=== PATIENT | male | born 1955 | race Caucasian/White ===

== ENCOUNTER 2020-01-20 14:38 | Inpatient (IN) | payer OTHER ==
[~2020-01-20] VITALS: Ht 170.2 cm; Wt 78.7 kg
[2020-01-20] MEDS ORDERED: AZITHROMYCIN 500MG/ 250ML 250 ML IV ONE (15:00)
[2020-01-20] MEDS ORDERED: methylPREDNISolone SOD SUCC 125 MG/2 ML VL IV ONE (15:00)
[2020-01-20 16:00] LABS: Basophils # (auto) 0 10 ^3/uL (0-0.2); Basophils % (auto) 0.1 % (0.0-2.0); Eosinophils # (auto) 0 10 ^3/uL (0-0.8); Eosinophils % (auto) 0.6 % (0.0-7.0); Lymphocytes # (auto) 1.5 10 ^3/uL (0.4-5.4); Lymphocytes % (auto) 18.5 % (10.0-50.0); Mean Corpuscular Hemoglobin 31.5 pg (28.0-32.0); Mean Corpuscular Hgb Conc. 35.1 g/dL (32.0-36.0); Mean Corpuscular Volume 89.7 fL (80.0-100.0); Monocytes # (auto) 0.7 10 ^3/uL (0-1.3); Monocytes % (auto) 8.2 % (0.0-12.0); Neutrophils % (auto) 72.6 % (37.0-80.0); Platelet Count (auto) 434 10^3/uL (140-450); Red Blood Cells 4.13 10^6/uL (4.5-5.90); Red Cell Distribution Width 12.9 % (11.8-14.3); White Blood Cell 8.3 10^3/uL (4.4-10.8)
[2020-01-20 16:21] LABS: Albumin 2.5 g/dL (3.4-5.0); Anion Gap 6 (5-15); Blood Urea Nitrogen 10 mg/dL (7-18); Calcium 8.6 mg/dL (8.5-10.1); Carbon Dioxide 27 mmol/L (21-32); Chloride 99 mmol/L (98-107); Glucose 94 mg/dL (74-106); Potassium 3.2 mmol/L (3.5-5.1); Sodium 132 mmol/L (136-145)
[2020-01-20 16:27] LABS: Alanine Aminotransferase 26 U/L (16-61); Alkaline Phosphatase 70 U/L (45-117); Aspartate Aminotransferase 26 U/L (15-37); BUN/Creatinine Ratio 14.5; Bilirubin, Total 0.6 mg/dL (0.2-1.0); GFR African American 148 mL/min; GFR Non-African American 122 mL/min; Total Protein 7.8 g/dL (6.4-8.2)
[2020-01-20 17:05] LABS: CRP High Sensitivity > 19.0 mg/dL (< 0.3)
[2020-01-20] MEDS: ASCORBIC ACID 500 MG TAB PO SCH (22:00)
[2020-01-20] MEDS: methylPREDNISolone SOD SUCC 125 MG/2 ML VL IV SCH (22:00)
[2020-01-21 06:14] VITALS: BP 131/94
[2020-01-21 10:39] VITALS: BP 150/102
[2020-01-21] MEDS: methylPREDNISolone SOD SUCC 125 MG/2 ML VL IV SCH ×2 (10:44→21:42)
[2020-01-21] MEDS: ZINC SULFATE 220mg CAP or TAB PO SCH (10:45)
[2020-01-21] MEDS: ASCORBIC ACID 500 MG TAB PO SCH ×2 (10:45→21:43)
[2020-01-21] MEDS: CHOLECALCIFEROL (VITD3) 2,000 UNIT CAP PO SCH (10:46)
[2020-01-21] MEDS: AZITHROMYCIN 250 MG TAB PO SCH (10:47)
[2020-01-21] MEDS: cefTRIAXone 1GM/50ML D5W 50 ML IV SCH (12:00)
[2020-01-21 22:00] VITALS: BP 166/106
[2020-01-21] MEDS ORDERED: ALBUTEROL SULF HFA 90MCG INH 200DOSE IN SCH (22:00)
[2020-01-22 04:48] VITALS: BP 158/108
--- NOTE | 2020-01-22 07:26 | NUR ---
closing note pt is on 3L nc. no c/o pain or discomfort. no respiratory distress noted. endorsed care to SARAH Carbajal.
--- NOTE | 2020-01-22 07:30 | NUR ---
Opening Shift Note Assumed care of patient, awake and alert. No signs of distress or pain noted. Patient on 3 L Nasal Cannula. Respirations even and unlabored. Instructed patient on the use of the call light PRN. Call light within reach. Safety measures in place including bed locked and in lowest position, and two side rails up. Will continue to monitor for any changes.
[2020-01-22 09:15] VITALS: BP 166/108
[2020-01-22] MEDS: AZITHROMYCIN 250 MG TAB PO SCH (10:54)
[2020-01-22] MEDS: METOPROLOL SUCCINATE XL 50 MG TAB PO SCH (10:55)
[2020-01-22] MEDS: ZINC SULFATE 220mg CAP or TAB PO SCH (10:55)
[2020-01-22] MEDS: ASCORBIC ACID 500 MG TAB PO SCH ×2 (10:56→21:15)
[2020-01-22] MEDS: CHOLECALCIFEROL (VITD3) 2,000 UNIT CAP PO SCH (10:56)
[2020-01-22] MEDS: ENOXAPARIN SOD 40 MG/0.4 ML SYRINGE SC SCH (10:56)
[2020-01-22] MEDS: methylPREDNISolone SOD SUCC 125 MG/2 ML VL IV SCH (10:57)
[2020-01-22] MEDS: cefTRIAXone 1GM/50ML D5W 50 ML IV SCH (10:57)
[2020-01-22 11:53] LABS: Urine Bacteria FEW /hpf (None Seen); Urine Blood Negative /uL (Negative); Urine Mucus FEW (None Seen); Urine Specific Gravity 1.025 (1.001-1.035); Urine WBC 1 /hpf (0 - 3)
--- NOTE | 2020-01-22 12:05 | NUR ---
Dr. Izquierdo at bedside Dr. Mcghee at bedside. Spoke to patient and updated patient on plan of care.
[2020-01-22 12:48] VITALS: BP 157/91
[2020-01-22] MEDS ORDERED: REMDESIVIR PER PHARMACY 0 ML IV SCH ×2 (14:15→14:30)
[2020-01-22] MEDS ORDERED: REMDESIVIR 200 MG in NS 210ml LOADING DOSE ADULT IV ONE (15:00)
--- NOTE | 2020-01-22 15:42 | NUR ---
DR. OLIVAS AT BEDSIDE.
[2020-01-22 16:38] VITALS: BP 154/95
[2020-01-22] MEDS: ALBUTEROL SULF HFA 90MCG INH 200DOSE IN PRN (19:32)
[2020-01-22 22:00] VITALS: BP 154/102
[2020-01-23 05:00] VITALS: BP 153/95
--- NOTE | 2020-01-23 07:06 | NUR ---
closing note pt is on 3Lnc. no respiratory distress noted at this time. no c/o pain at this time. endorsed care to day shift RN.
[2020-01-23 08:00] VITALS: BP 166/108
--- NOTE | 2020-01-23 08:00 | NUR ---
ASSESSMENT NOTE PT IS ALERT ORIENTED X4, RESTING IN BED COMFORTABLY, NO DISTRESS NOTED, OXYGEN 2 L NC, ABLE TO SELF REPOSITION AND VERBALIS HIS DEMANDS, PAIN 0/10 AT THIS TIME, A METAL HAND CUFF NOTED AT LEFT WRIEST AND BOTH FEET, GUARDS AT BED SIDE AT ALL TIMES, USE URINAL NEEDED, CALL LIGHT WITHIN REACH
[2020-01-23 08:45] VITALS: BP 163/99
[2020-01-23 09:28] LABS: Albumin 2.2 g/dL (3.4-5.0); Calcium 8.8 mg/dL (8.5-10.1); Potassium 3.6 mmol/L (3.5-5.1)
[2020-01-23 09:31] LABS: Bilirubin, Total 0.4 mg/dL (0.2-1.0); Total Protein 7.1 g/dL (6.4-8.2)
[2020-01-23] MEDS: DexAMETHasone SOD PHOS 10MG/1ML VIAL INJ IV SCH (09:39)
[2020-01-23] MEDS: ZINC SULFATE 220mg CAP or TAB PO SCH (09:40)
[2020-01-23] MEDS: cefTRIAXone 1GM/50ML D5W 50 ML IV SCH (09:40)
[2020-01-23] MEDS: METOPROLOL SUCCINATE XL 50 MG TAB PO SCH (09:40)
[2020-01-23] MEDS: PANTOPRAZOLE 40 MG TAB PO SCH (09:40)
[2020-01-23] MEDS: ENOXAPARIN SOD 40 MG/0.4 ML SYRINGE SC SCH (09:41)
[2020-01-23] MEDS: AZITHROMYCIN 250 MG TAB PO SCH (09:41)
[2020-01-23] MEDS: ASCORBIC ACID 500 MG TAB PO SCH (09:41)
[2020-01-23] MEDS: CHOLECALCIFEROL (VITD3) 2,000 UNIT CAP PO SCH (09:41)
--- NOTE | 2020-01-23 12:00 | NUR ---
DR OLIVAS IS HERE FOLLOWING UP ON PT
[2020-01-23 12:41] VITALS: BP 164/98
[2020-01-23] MEDS: REMDESIVIR 100 MG in SODIUM CHL 0.9% 250 ML IV SCH (15:34)
--- NOTE | 2020-01-23 16:34 | NUR ---
PT TOLERATED REMEDISIVIR WELL, NO DISTRESS NOTED, CONTINUE MONITORING
[2020-01-23 17:07] VITALS: BP 167/104
--- NOTE | 2020-01-23 18:44 | NUR ---
PT CONTINUE STABLE, CONTINUE MONITORING
[2020-01-23 22:07] VITALS: BP 154/93
[2020-01-23] MEDS: ALBUTEROL SULF HFA 90MCG INH 200DOSE IN PRN (22:23)
[2020-01-24] VITALS (7 sets, daily range): BP systolic 143–163; BP diastolic 88–99
[2020-01-24] MEDS: ASCORBIC ACID 500 MG TAB PO SCH ×3 (00:08→21:09)
--- NOTE | 2020-01-24 07:26 | NUR ---
closing note pt is on 2L nc. no s/s of respiratory distress. no c/o pain at this time. endorsed care to day shift RN Chelle.
[2020-01-24] MEDS ORDERED: LISINOPRIL 5 MG TAB PO SCH (10:00)
[2020-01-24] MEDS: DexAMETHasone SOD PHOS 10MG/1ML VIAL INJ IV SCH (10:06)
[2020-01-24] MEDS: cefTRIAXone 1GM/50ML D5W 50 ML IV SCH (10:06)
[2020-01-24] MEDS: ZINC SULFATE 220mg CAP or TAB PO SCH (10:06)
[2020-01-24] MEDS: CHOLECALCIFEROL (VITD3) 2,000 UNIT CAP PO SCH (10:07)
[2020-01-24] MEDS: PANTOPRAZOLE 40 MG TAB PO SCH (10:07)
[2020-01-24] MEDS: AZITHROMYCIN 250 MG TAB PO SCH (10:08)
[2020-01-24] MEDS: ENOXAPARIN SOD 40 MG/0.4 ML SYRINGE SC SCH (10:08)
[2020-01-24] MEDS: METOPROLOL SUCCINATE XL 50 MG TAB PO SCH (10:18)
--- NOTE | 2020-01-24 10:23 | NUR ---
Nutrition Assessment Est energy needs [id number] kcal (20-25 kcal/kg BW 79.1kg) Est protein needs 63-79g (0.8-1g/kg BW 79.1kg) Will monitor and reassess prn. Addendum: 01/24/20 at [address] Amended: Links added.
[2020-01-24 13:54] LABS: Potassium 4.7 mmol/L (3.5-5.1)
[2020-01-24 14:03] LABS: Albumin 2.3 g/dL (3.4-5.0); BUN/Creatinine Ratio 29.4; Bilirubin, Total 0.3 mg/dL (0.2-1.0); Calcium 8.5 mg/dL (8.5-10.1); Total Protein 6.9 g/dL (6.4-8.2)
[2020-01-24] MEDS: REMDESIVIR 100 MG in SODIUM CHL 0.9% 250 ML IV SCH (15:27)
--- NOTE | 2020-01-24 15:28 | NUR ---
REMEDISIVIR IV INITIATED PRE SET OF VS TAKEN, CONTINUE MONITORING
[2020-01-24] MEDS: ALBUTEROL SULF HFA 90MCG INH 200DOSE IN PRN ×2 (16:14→19:50)
--- NOTE | 2020-01-24 16:28 | NUR ---
PT TOLERATED REMEDISIVIR WELL, NO DISTRESS NOTED, CONTINUE MONITORING
--- NOTE | 2020-01-24 18:55 | NUR ---
PT CONTINUE STABLE, CONTINUE MONITORING
[2020-01-25 05:00] VITALS: BP 158/87
[2020-01-25] MEDS: ALBUTEROL SULF HFA 90MCG INH 200DOSE IN PRN ×2 (06:45→21:33)
--- NOTE | 2020-01-25 07:13 | NUR ---
closing note pt is on 3Lnc. no c/o pain or discomfort. no respiratory distress. endorsed care to day shift Rn Chelle.
[2020-01-25 07:36] LABS: Potassium 4.6 mmol/L (3.5-5.1)
[2020-01-25 07:40] LABS: Albumin 2.2 g/dL (3.4-5.0); BUN/Creatinine Ratio 33.3; Calcium 8.2 mg/dL (8.5-10.1)
[2020-01-25 07:43] LABS: Bilirubin, Total 0.3 mg/dL (0.2-1.0); Total Protein 6.1 g/dL (6.4-8.2)
[2020-01-25 08:00] VITALS: BP 172/102
--- NOTE | 2020-01-25 08:00 | NUR ---
ASSESSMENT NOTE PT IS ALERT ORIENTED X4, RESTING IN BED COMFORTABLY, NO DISTRESS NOTED, OXYGEN 2 L NC, SAT AT 95 %, ABLE TO SELF REPOSITION AND VERBALIS HIS DEMANDS, PAIN 0/10 AT THIS TIME, A METAL HAND CUFF NOTED AT LEFT WRIEST AND BOTH FEET, GUARDS AT BED SIDE AT ALL TIMES, USE URINAL NEEDED, CALL LIGHT WITHIN REACH
[2020-01-25 08:54] VITALS: BP 151/97
--- NOTE | 2020-01-25 09:30 | NUR ---
DR OLIVAS IS HERE FOLLOWING UP ON PT, ADVICE TO TAKE OFF THE OXYGEN AND REASSESS
[2020-01-25] MEDS: DexAMETHasone SOD PHOS 10MG/1ML VIAL INJ IV SCH (10:11)
[2020-01-25] MEDS: cefTRIAXone 1GM/50ML D5W 50 ML IV SCH (10:11)
[2020-01-25] MEDS: PANTOPRAZOLE 40 MG TAB PO SCH (10:11)
[2020-01-25] MEDS: ZINC SULFATE 220mg CAP or TAB PO SCH (10:11)
[2020-01-25] MEDS: ASCORBIC ACID 500 MG TAB PO SCH ×2 (10:12→23:24)
[2020-01-25] MEDS: METOPROLOL SUCCINATE XL 50 MG TAB PO SCH (10:12)
[2020-01-25] MEDS: CHOLECALCIFEROL (VITD3) 2,000 UNIT CAP PO SCH (10:12)
[2020-01-25] MEDS: ENOXAPARIN SOD 40 MG/0.4 ML SYRINGE SC SCH (10:13)
[2020-01-25] MEDS: LISINOPRIL 5 MG TAB PO SCH (10:13)
[2020-01-25] MEDS: AZITHROMYCIN 250 MG TAB PO SCH (10:13)
--- NOTE | 2020-01-25 11:40 | NUR ---
ROOM AIR SATURATION ON RESTING 96 % PT AMBULATING IN THE HALLWAYS, 100 FEET AND BACK TO BED, PT SAT AT 89-91, OCCASIONAL NON PRODUCTIVE COUGH NOTED, OXYGEN 2 L NC APPLIED
[2020-01-25 13:00] VITALS: BP 135/89
[2020-01-25] MEDS: REMDESIVIR 100 MG in SODIUM CHL 0.9% 250 ML IV SCH (15:48)
--- NOTE | 2020-01-25 15:48 | NUR ---
REMEDISIVIR IV INITIATED PRE SET OF VS TAKEN, CONTINUE MONITORING
--- NOTE | 2020-01-25 16:48 | NUR ---
PT TOLERATED REMEDISIVIR WELL, NO DISTRESS NOTED, CONTINUE MONITORING
[2020-01-25 17:00] VITALS: BP 136/90
--- NOTE | 2020-01-25 18:27 | NUR ---
PT CONTINUE STABLE, CONTINUE MONITORING
[2020-01-25 22:37] VITALS: BP 144/81
[2020-01-26 05:00] VITALS: BP 160/98
[2020-01-26 07:18] LABS: Albumin 2.2 g/dL (3.4-5.0); Calcium 8.8 mg/dL (8.5-10.1); Potassium 4.9 mmol/L (3.5-5.1)
[2020-01-26 07:21] LABS: BUN/Creatinine Ratio 28.6; Bilirubin, Total 0.3 mg/dL (0.2-1.0)
--- NOTE | 2020-01-26 07:26 | NUR ---
closing note pt is resting comfortably in semi fowlers position. no c/o pain or discomfort. no s/s of respiratory distress. endorsed care to day shift RN Chelle.
[2020-01-26 08:00] VITALS: BP_SYST 151; BP_SYST 168; BP_DIAS 104; BP_DIAS 97
--- NOTE | 2020-01-26 08:00 | NUR ---
ASSESSMENT NOTE PT IS ALERT ORIENTED X4, RESTING IN BED COMFORTABLY, NO DISTRESS NOTED, OXYGEN 2 L NC, SAT AT 95 %, PT APPEAR ANXIOUS REGARDING THE DISCHARGE, WANDERING IF HE HAVE TO USE OXYGEN LATER ON, ABLE TO SELF REPOSITION AND VERBALIS HIS DEMANDS, PAIN 0/10 AT THIS TIME, A METAL HAND CUFF NOTED AT LEFT WRIEST AND BOTH FEET, GUARDS AT BED SIDE AT ALL TIMES, USE URINAL NEEDED, CALL LIGHT WITHIN REACH
--- NOTE | 2020-01-26 10:00 | NUR ---
INCENTIVE SPIROMETER EDUCATED PT HOW TO USE INCENTIVE SPIROMETER EVERY HOUR TOLERATED, , EXPLAIN WHY, VERBALIS UNDERSTANDING.
[2020-01-26] MEDS: cefTRIAXone 1GM/50ML D5W 50 ML IV SCH (10:10)
[2020-01-26] MEDS: ZINC SULFATE 220mg CAP or TAB PO SCH (10:10)
[2020-01-26] MEDS: DexAMETHasone SOD PHOS 10MG/1ML VIAL INJ IV SCH (10:10)
[2020-01-26] MEDS: PANTOPRAZOLE 40 MG TAB PO SCH (10:10)
[2020-01-26] MEDS: LISINOPRIL 5 MG TAB PO SCH (10:11)
[2020-01-26] MEDS: CHOLECALCIFEROL (VITD3) 2,000 UNIT CAP PO SCH (10:11)
[2020-01-26] MEDS: ASCORBIC ACID 500 MG TAB PO SCH ×2 (10:11→22:01)
[2020-01-26] MEDS: METOPROLOL SUCCINATE XL 50 MG TAB PO SCH (10:11)
[2020-01-26] MEDS: AZITHROMYCIN 250 MG TAB PO SCH (10:12)
[2020-01-26] MEDS: ENOXAPARIN SOD 40 MG/0.4 ML SYRINGE SC SCH (10:12)
--- NOTE | 2020-01-26 12:00 | NUR ---
DR OLIVAS IS HERE FOLLOWING UP ON PT, MADE AWARE OF PATIENT'S SATURATION DURING AMBULATION AND ON RESTING
--- NOTE | 2020-01-26 12:15 | NUR ---
DR OLIVAS ADVISED TO KEEP PT ON ROOM AIR, WILL PLAN TO DISCHARGE PT TOMORROW
[2020-01-26 13:00] VITALS: BP 149/89
[2020-01-26] MEDS: REMDESIVIR 100 MG in SODIUM CHL 0.9% 250 ML IV SCH (16:17)
--- NOTE | 2020-01-26 16:17 | NUR ---
REMEDISIVIR IV INTIMATED PRE SET OF VS TAKEN, CONTINUE MONITORING
[2020-01-26 17:00] VITALS: BP 143/94
--- NOTE | 2020-01-26 17:17 | NUR ---
PT TOLERATED REMEDISIVIR WELL, NO DISTRESS NOTED, CONTINUE MONITORING
--- NOTE | 2020-01-26 18:50 | NUR ---
PT CONTINUE STABLE, CONTINUE MONITORING
[2020-01-26] MEDS: ALBUTEROL SULF HFA 90MCG INH 200DOSE IN PRN (20:34)
[2020-01-26 22:00] VITALS: BP 138/93
[2020-01-27 08:00] VITALS: BP 145/90
--- NOTE | 2020-01-27 08:05 | NUR ---
Opening Shift Note Assumed care of patient, awake and alert. No S/S of distress/SOB or pain. Patient is on room air. Guards at bedside. Instructed on POC and to call for assist PRN, will continue to monitor for changes Q1hr and PRN. Bed is locked and in lowest position. Call light within reach.
[2020-01-27] MEDS: DexAMETHasone SOD PHOS 10MG/1ML VIAL INJ IV SCH (09:48)
[2020-01-27] MEDS: CHOLECALCIFEROL (VITD3) 2,000 UNIT CAP PO SCH (09:48)
[2020-01-27] MEDS: ZINC SULFATE 220mg CAP or TAB PO SCH (09:48)
[2020-01-27] MEDS: PANTOPRAZOLE 40 MG TAB PO SCH (09:49)
[2020-01-27] MEDS: LISINOPRIL 5 MG TAB PO SCH (09:49)
[2020-01-27] MEDS: ASCORBIC ACID 500 MG TAB PO SCH (09:49)
[2020-01-27] MEDS: METOPROLOL SUCCINATE XL 50 MG TAB PO SCH (09:50)
[2020-01-27] MEDS: AZITHROMYCIN 250 MG TAB PO SCH (09:50)
[2020-01-27] MEDS: ENOXAPARIN SOD 40 MG/0.4 ML SYRINGE SC SCH (09:50)
[2020-01-27] MEDS: cefTRIAXone 1GM/50ML D5W 50 ML IV SCH (10:10)
--- NOTE | 2020-01-27 12:20 | NUR ---
Nutrition Followup Note Wt 78.7kg Pt is covid positive in covid isolation. Pt with no new signs of distress per RN note. Pt is with a good appetite aeb pt with 100% po intake of meals of regular diet per Rn nutrition Note Est energy needs [id number] kcal (20-25 kcal/kg BW 79.1kg) Est protein needs 63-79g (0.8-1g/kg BW 79.1kg) Will monitor and reassess prn. Labs: BUN 20H, Alb 2.2L BM: Pt with 1 BM 01/26 per RN note Skin: BS 21 low risk, full details in child care assistant note PES Partially resolved pt gluc WNL Altered nutrition related labs r/t current medical condition aeb pt with elevated BUN, hyperglycemia, hypoalb Comments 1) Continue to monitor po intake, labs, skin 2) refer pt to [facility] on Dc 3) Continue current plan of care Expected Outcomes/Goals: 1) pt po intake >75% 2) pt labs to improve 3) f/u 3-5 days
[2020-01-27 17:21] VITALS: BP 138/81
--- NOTE | 2020-01-27 17:56 | NUR ---
DISCHARGE PATIENT GIVEN DISCHARGE PAPERWORK, ALL QUESTIONS AND CONCERNS ANSWERED. PATIENT WILL FOLLOW UP WITH ASSISTED MD. PATIENT WILL AWAIT MORTGAGE SPECIALIST FROM ASSISTED TRANSPORTATION. IV removal IV DC'd ON RIGHT HAND with clean sterile technique, catheter fully intact. Pressure dressing applied to site. Patient tolerated well.
== END 2020-01-27 18:10 | DRG 177 ==
LOC: EEVIPCON 14:38 → ER 14:38 → EDBD 14:38 → OVERFLOW 14:39 → WEST WING 23:51
PROVIDERS: ADMIT Internal Medicine; ATTEND Internal Medicine
PROC: XW033E5 Introduction of Remdesivir Anti-infective into Peripheral Vein, Percutaneous Approach, New Technology Group 5 (ICD-10-PCS; principal; 2020-01-22)
DX: U07.1 COVID-19 (principal); J12.89 Other viral pneumonia; J96.01 Acute respiratory failure with hypoxia; R79.82 Elevated C-reactive protein (CRP); I10 Essential (primary) hypertension
CPT/HCPCS: 36415; 71045; 80053; 81001; 82728; 83605; 84484; 85025; 85379; 86141; 87040; 87426; 93005; 94640; 96365; 96375; 99291; G0378; J0696; J1100